=== PATIENT | male | born 1940 ===

== ENCOUNTER 2019-07-04 22:08 | Inpatient (IN) | payer OTHER ==
[~2019-07-04] VITALS: Ht 162.6 cm; Wt 79.4 kg
[2019-07-08] MEDS ORDERED: LOPRESSOR25 MG PO (13:57)
[2019-07-08] MEDS ORDERED: CLOPIDOGREL BIS75 MG PO (13:57)
[2019-07-08] MEDS ORDERED: ASA-EC81 MG PO (13:57)
== END 2019-07-08 16:21 | disposition home or self-care (01) | DRG 280 ==
LOC: ER 22:08 → ICU-2 07-05 01:40 → SURH 07-07 18:00
PROVIDERS: ADMIT Internal Medicine
PROC: B246ZZZ Ultrasonography of Right and Left Heart (ICD-10-PCS; principal; 2019-07-05)
PROC: 4A12X4Z Monitoring of Cardiac Electrical Activity, External Approach (ICD-10-PCS; 2019-07-05)
PROC: C21G1ZZ Planar Nuclear Medicine Imaging of Myocardium using Technetium 99m (Tc-99m) (ICD-10-PCS; 2019-07-06)
DX: I21.4 Non-ST elevation (NSTEMI) myocardial infarction (principal); I50.21 Acute systolic (congestive) heart failure; I47.1 Supraventricular tachycardia; N17.8 Other acute kidney failure; I11.0 Hypertensive heart disease with heart failure; I08.3 Combined rheumatic disorders of mitral, aortic and tricuspid valves; I48.0 Paroxysmal atrial fibrillation; Z79.01 Long term (current) use of anticoagulants